=== PATIENT | male | born 1970 | race Caucasian/White ===

== ENCOUNTER 2021-10-25 18:38 | Emergency (ER) | payer MEDICAID, SELFPAY ==
--- NOTE | ~2021-10-25 | XR_ITS ---
EXAMINATION: XR CHEST CLINICAL INFORMATION: Overdose COMPARISON: Chest x-ray on 10/11/2015 TECHNIQUE: Frontal view of the chest was obtained. FINDINGS: No significant abnormality is noted involving the heart, lungs, mediastinum, bony thorax or soft tissues. XR/XR chest 1V IMPRESSION: Unremarkable examination.
[2021-10-25 18:50] VITALS: BP 144/78; PULSE 111; O2SAT 95
--- NOTE | 2021-10-25 18:53 | ED_ITS ---
HPI - Overdose General Chief Complaint: Overdose Stated Complaint: OD with narcan and CPR, Now A and o x4 Time Seen by Provider: 10/25/21 18:53 Source: patient Mode of arrival: EMS Limitations: no limitations History of Present Illness HPI Narrative: states he snorted one bag of dope tonight prior to arrival, EMS noted 1 bystander nasal narcan prior to their arrival - he was alert and oriented on their arrival - ?CPR with bystanders. no SI MD complaint: accidental overdose Onset (ago): minute(s) (just prior to arrival ) Timing confirmed by: other (bystander) Context: Accidental Overdose: wanted to get high Associated symptoms: other (denies) Treatments Prior to Arrival: narcan (one dose of intranasal narcan ) Related Data Allergies Allergy/AdvReac Type Severity Reaction Status Date / Time No Known Allergies Allergy Unverified 02/03/20 15:33 Review of Systems Review of Systems: Constitutional : No Fever, No Chills ENT/Mouth : No Ear Pain, No Nasal Congestion, No sore throat Eyes: No Eye Pain, No Swelling, No Redness Cardiovascular : No Chest Pain, No SOB Respiratory : No Cough, No Sputum, No Dyspnea Gastrointestinal : No Nausea, No Vomiting, No Diarrhea, No Hematochezia, No Melena Genitourinary : No Dysuria, No Urinary Frequency, No Hematuria Musculoskeletal : No Myalgias Skin : No Skin Lesions, No rash Neuro : No Weakness, No Numbness, No Paresthesias, No Dizziness, No Headache Psych : no Anxiety, no Depression, no SI/HI Heme/Lymph: No Lymphadenopathy Endocrine : No Polyuria, No Polydipsia All other systems reviewed and are negative [facility] Past Medical History Attestation statement: The following information was validated with the patient. Medical History (Updated 10/25/21 @ 21:43 by Miri Gee DO) No pertinent past medical history Social History Social History (Updated 10/25/21 @ 19:01 by Miri Gee DO) Patient Tobacco Use Status: Current everyday Tobacco user Substance Use Type: Heroin Advance Directives: No Advance Directives Information Provided: No Physical Exam Vital Signs: Vital Signs: Last Vital Signs Pulse 81 10/25/21 18:57 Resp 16 10/25/21 18:57 BP 124/79 10/25/21 18:57 Pulse Ox 94 10/25/21 21:30 O2 Del Method 10/25/21 21:30 BMI result Body Mass Index 22.8 Appearance: Alert. Oriented X3. No acute distress. Eyes: Pupils equal, round and reactive to light. ENT: Pharynx normal. Neck: Normal inspection. Neck supple. CVS: Normal heart rate and rhythm. Pulses normal. Respiratory: No respiratory distress. Breath sounds normal. Abdomen: Soft and nontender. Skin: Skin warm and dry. Normal skin color. Normal skin turgor. Extremities: No lower extremity edema. No calf ttp Neuro: Oriented X 3. No motor deficit. No sensory deficit. Course Course Course Narrative: observed for 3 hours sats improved he is on INH at home 94% on RA< no need for repeat narcan while in ED given albuterol INH in hand patient alert and oriented O2 sat 94% he has a hx of COPD and heavy smoking not compliant with INH treatments, GCS 15, steady gait up and to the bathroom, no SI SUDE offered CARE team aware - very upset states patient is suicidal but patient denies this, the is upset and agitated, yelling in the hallway. I have explained he is going to be seen by a social work case manager though he is not SI so I doubt that he will go inpatient. She states he sent her a text message stating he didn't want to be here anymore - patient states yes in the hospital, I just sent you that. meaning I wanted to leave the hospital. the now states he needs detox - I explained we offered that and he saw a instructional coach. He refused detox and suicidal patients do not belong in detox. I also explained to the family that they can get a section 35 if they want him to go to detox. At this time CARE team to see patient and screen him. Patient and do not live together. At this time obviously the family is concerned but he does not want detox and I do not think he is suicidal I believe these statements are being made in order to try to force the patient to get help. no hx with [facility] other than detox, cleared by CARE team no SI, patient wants to go home, refuses detox stable for DC discussed everything with patient's children MDM - Overdose MDM Narrative Medical decision making narrative: 51 yo male accidental heroin overdose - possible bystander CPR - patient refusing SUDE or detox - will take card for comprehensive care clinic and take home narcan. His O2 sats are slighty low he is a heavy smoker will obtain CXR for aspiration, will observe in ED until more awake and improved O2 sats. Discharge Plan Discharge Clinical Impression: Opiate use Drug overdose Qualifiers: Encounter type: initial encounter Injury intent: accidental or unintentional Qualified Code(s): T50.901A - Poisoning by unspecified drugs, medicaments and biological substances, accidental (unintentional), initial encounter Patient Disposition: Home, Self-Care Instructions: Adult Overdose (ED) Additional Instructions: return to ED for any worsening symptoms or concerns carry narcan with you please consider the resources given to you in the ED for opiate use and recovery can you albuterol inhaler 2 puffs every 4 hours as needed for wheezing and dyspnea stay with responsible adult tonight
[2021-10-25 18:57] VITALS: BP 124/79; PULSE 81; RESP 16; O2SAT 90; BMI 22.8
--- NOTE | 2021-10-25 19:00 | PC.NURSE ---
Took report from Pamela to assume care of Pt, Pt resting in bed in nava, Pt on portable monitor, this RN continues to monitor
--- NOTE | 2021-10-25 19:30 | MHC.RECOVSUP ---
? Reason for consult:Recovery Support o Current location:ED-06 o Identified substance use concern: Heroine - Overdose - Support ? Intervention: o Community resources provided o Harm reduction discussion ? Plan: o Referral to [facility] o Patient to follow up with [facility] after discharge ? Additional information:Patient refuses detox, had a harm reduction conversation, gave patient community resources, referred yhim to [facility] and the CCC
[2021-10-25 21:30] VITALS: O2SAT 94
[2021-10-25] MEDS: Albuterol Sulfate 90 MCG 8 GM INHALER 2 PUFF INHALE (21:40)
[2021-10-25] MEDS: Naloxone HCl Nasal TAKE HOME 4 MG SPRAY NOSTRILALT (21:40)
[2021-10-25 22:00] VITALS: BP 113/72; PULSE 86; RESP 14; O2SAT 95
--- NOTE | 2021-10-25 22:27 | MHC.CARE ---
Pt was seen by the CARE tram for a SUDE. Pt overdosed on Heroin today. He has no previous psychiatric hx. He had a detox admission in 2015. He states I know what I need to do in regards to seeking help. Pt states he would like Cali to call him tomorrow and discussed that Cali told him about HFH. Pt states he needs to go back to meetings. He does not have a therapist nor is he interested in one. Pt declines any psychiatric or substance use treatment and would like too go home with his family. Pt denies SI/HI does not exhibit any psychotic sx's and denies any hx of suicide attempts.
== END 2021-10-25 22:59 | disposition home or self-care (01) ==
PROVIDERS: Emergency Provider Emergency Medicine; PCP Nurse Practitioner Family
DX: T40.1X1A Poisoning by heroin, accidental (unintentional), initial encounter (principal); Y92.410 Unspecified street and highway as the place of occurrence of the external cause; F17.200 Nicotine dependence, unspecified, uncomplicated
CPT/HCPCS: 71045; 99284

== ENCOUNTER 2021-11-16 00:43 | Emergency (ER) | payer MEDICAID, SELFPAY ==
[2021-11-16 00:49] VITALS: BP 137/83; PULSE 75; RESP 20; TEMP 36.7; O2SAT 95; BMI 24.4
== END 2021-11-16 07:48 | disposition left against medical advice (07) ==
LOC: HO.ED 07:46
PROVIDERS: Emergency Provider Emergency Medicine; PCP Nurse Practitioner Family
DX: R51.9 Headache, unspecified (principal)
CPT/HCPCS: 99281

== ENCOUNTER 2021-12-26 09:36 | Outpatient (REF) | payer MEDICAID, SELFPAY ==
[2021-12-26 11:43] LABS: Alanine Aminotransferase 13 U/L (0-40); Albumin Level 4.2 g/dL (3.5-5.0); Alkaline Phosphatase 62 U/L (39-117); Aspartate Amino Transferase 17 U/L (5-37); Bilirubin Direct 0.2 mg/dL (0.0-0.5); Bilirubin Total 0.5 mg/dL (0.0-1.0); Total Protein 6.6 g/dL (6.5-8.0)
== END 2021-12-26 09:37 | disposition home or self-care (01) ==
LOC: HO.HMGCLDS 09:36
PROVIDERS: PCP Nurse Practitioner Family; Visit Provider Nurse Practitioner Family
DX: B35.4 Tinea corporis (principal)
CPT/HCPCS: 36415; 80076

== ENCOUNTER 2022-01-25 14:16 | Outpatient (REF) | payer MEDICAID, SELFPAY ==
[2022-01-25 16:48] LABS: Alanine Aminotransferase 12 U/L (0-40); Aspartate Amino Transferase 16 U/L (5-37)
== END 2022-01-25 14:17 | disposition home or self-care (01) ==
LOC: HO.HMGCLDS 14:16
PROVIDERS: PCP Nurse Practitioner Family; Visit Provider Nurse Practitioner Family
DX: B35.1 Tinea unguium (principal)
CPT/HCPCS: 36415; 84450; 84460